=== PATIENT | female | born 1950 | race Caucasian/White ===

== ENCOUNTER → 2022-12-25 | Outpatient (CLI) | payer BC, SELFPAY ==
--- NOTE | 2022-12-25 12:59 | RAD_ITS ---
STUDY: X-RAY - ABDOMEN/PELVIS REASON FOR EXAM: Female, 72 years old. KUB- KIDNEY STONES TECHNIQUE: Single AP view of the abdomen / pelvis. COMPARISON: None. FINDINGS: There is a moderate amount of colonic fecal material. Questionable 2 mm calculus in the right midabdomen overlying the transverse process of the L3 vertebrae on the right side. There are calcified phleboliths in the pelvis. Mild degree of levoscoliosis. RAD/Abdomen Single View IMPRESSION: Calcified phleboliths are seen in the pelvis. Questionable 2 mm calculus in the right mid abdomen overlying the transverse processes of the L3 vertebrae. Electronically Signed: Azam Abraham MD at 15:19 EST ,
== END | disposition home or self-care (01) ==
LOC: MTRAD 12:57
PROVIDERS: PCP Family Medicine; Referring Provider Urology; Visit Provider Urology
DX: N20.0 Calculus of kidney (principal)
CPT/HCPCS: 74018